=== PATIENT | female | born 1950 | race Caucasian/White ===

== ENCOUNTER → 2017-05-07 | Outpatient (CLI) | payer BC ==
[~2017-05-07] MED LIST: ASPIRIN 32325 MG/TAB PO; ASPIRIN E.C. 8181 MG PO; BLOOD PRESSURE; DUO-KAPS1 CAP PO; FLOMAX 0.40.4 MG/CAP PO; HYZAAR 25 MG-101 TAB PO; NORVASC 5MG5 MG/TAB PO; PRILOSEC 20MG20 MG PO; RESTASIS 60VL OP; ROXICODONE 55 MG/TAB PO; TENORMIN100 MG PO; THE MEDICINE S300 M1 PO; TOPROL XL100 MG PO; VITAMIN C500 MG PO
== END ==
LOC: MC.RAD 09:30
DX: Z85.3 Personal history of malignant neoplasm of breast (principal); Z90.11 Acquired absence of right breast and nipple

== ENCOUNTER 2018-03-10 23:50 | Inpatient (IN) | payer MEDICARE, BC ==
[~2018-03-10] VITALS: Ht 162.6 cm; Wt 138.6 kg
[~2018-03-10 23:50] MED LIST changes: +NATURAL FISH1000 MG PO; -THE MEDICINE S300 M1 PO
[2018-03-11] VITALS (130 sets, daily range): BP systolic 138–159; BP diastolic 66–81; PULSE 66–82; TEMP 97.1–98.5; O2SAT 91–100
[2018-03-11 00:14] LABS: BASO % 0.5 % (0.0-2.0); EOS # 0.1 (0.0-0.7); EOS % 1.7 % (0-4.0); HEMATOCRIT 34.5 % (37.0-47.0); HEMOGLOBIN 11.3 g/dl (12.5-16.0); LYMPH # 1.1 (1.2-3.4); LYMPH % 16.5 % (20.0-51.0); MEAN CELL VOLUME 78 fl (80.0-100.0); MEAN CORPUSCULAR HEMOGLOBIN 26 pg (27.0-31.0); MEAN CORPUSCULAR HGB CONC 33 g/dl (33.0-37.0); MONO # 0.3 (0.1-0.6); PLATELET COUNT 157 K/mm3 (130-400); RED BLOOD COUNT 4.43 M/mm3 (4.10-5.30)
[2018-03-11 00:16] LABS: PROTHROMBIN TIME 10.9 SECONDS (9.7-12.8)
[2018-03-11 00:19] LABS: PARTIAL THROMBOPLASTIN TIME 32.6 SECONDS (26.0-37.0)
[2018-03-11 00:29] LABS: ALANINE AMINOTRANSFERASE 40 U/L (9-52); ALBUMIN 3.8 gm/dL (3.5-5.0); ALKALINE PHOSPHATASE 105 U/L (50-136); ANION GAP 11 mmol/L (7-16); AST,SGOT 54 U/L (15-37); BILIRUBIN,TOTAL 0.5 mg/dL (0.0-1.0); BLOOD UREA NITROGEN 15 mg/dL (7-17); CALCIUM 8.7 mg/dL (8.4-10.2); CARBON DIOXIDE 31 mmol/L (22-30); CHLORIDE 98 mmol/L (98-107); GLUCOSE 185 mg/dL (74-106); POTASSIUM 3.3 mmol/L (3.4-5.0); SODIUM 140 mmol/L (137-145); TOTAL PROTEIN 7.2 gm/dL (6.4-8.2)
[2018-03-11] MEDS ORDERED: ARIMIDEX1 MG PO (00:36)
[2018-03-11] MEDS ORDERED: ASPIRIN 81M81 MG/TA2 PO (00:37)
[2018-03-11 00:40] LABS: TROPONIN-I < 0.012 ng/mL (0.000-0.034)
[2018-03-11 00:43] LABS: LIPASE 4207 U/L (23-300)
[2018-03-11 08:21] LABS: BASO % 0.2 % (0.0-2.0); EOS % 0.6 % (0-4.0); GRAN # 4.7 (1.4-6.5); GRAN % 86.7 % (42.2-75.2); HEMOGLOBIN 10.6 g/dl (12.5-16.0); LYMPH # 0.4 (1.2-3.4); MEAN CELL VOLUME 78 fl (80.0-100.0); MEAN CORPUSCULAR HEMOGLOBIN 25 pg (27.0-31.0); MEAN CORPUSCULAR HGB CONC 33 g/dl (33.0-37.0); MEAN PLATELET VOLUME 9.2 fl (7.4-10.4); MONO # 0.2 (0.1-0.6); MONO % 4.1 % (1.7-9.3); PLATELET COUNT 132 K/mm3 (130-400); REDCELL DISTRIBUTION WIDTH-CV 15.1 % (11.5-14.5)
[2018-03-11 08:22] LABS: HEMATOCRIT 32.6 % (37.0-47.0)
[2018-03-11 08:30] LABS: ANION GAP 8 mmol/L (7-16); BLOOD UREA NITROGEN 12 mg/dL (7-17); CALCIUM 8.3 mg/dL (8.4-10.2); CARBON DIOXIDE 30 mmol/L (22-30); CHLORIDE 100 mmol/L (98-107); CREATININE, serum 0.63 mg/dL (0.52-1.25); GLUCOSE 192 mg/dL (74-106); POTASSIUM 3.8 mmol/L (3.4-5.0); SODIUM 139 mmol/L (137-145)
[2018-03-11 08:43] LABS: TROPONIN-I 6 HR POST INITIAL < 0.012 ng/mL (0.000-0.034)
[2018-03-12 00:33] VITALS: BP 132/74; PULSE 78; TEMP 99
[2018-03-12 04:48] VITALS: BP 140/71; PULSE 70; TEMP 98.2
[2018-03-12 07:58] LABS: C-REACTIVE PROTEIN 4.7 mg/dL (0.0-0.9)
[2018-03-12 08:34] VITALS: BP 149/67; PULSE 75; TEMP 98.1
[2018-03-12 12:01] VITALS: BP 149/76; PULSE 75; TEMP 98.7
[2018-03-12 15:48] VITALS: BP 145/72; PULSE 76; TEMP 98.4
[2018-03-12 20:25] VITALS: BP 146/71; PULSE 80; TEMP 98.7
[2018-03-13 04:55] VITALS: BP 153/70; PULSE 77; TEMP 98.6
[2018-03-13 07:26] VITALS: BP 147/77; PULSE 74; TEMP 98.7
[2018-03-13 07:31] LABS: BASO % 0.4 % (0.0-2.0); EOS # 0.1 (0.0-0.7); EOS % 1.8 % (0-4.0); GRAN # 3.9 (1.4-6.5); GRAN % 75.4 % (42.2-75.2); LYMPH # 0.9 (1.2-3.4); LYMPH % 17.3 % (20.0-51.0); MEAN CELL VOLUME 79 fl (80.0-100.0); MEAN CORPUSCULAR HEMOGLOBIN 25 pg (27.0-31.0); MEAN CORPUSCULAR HGB CONC 32 g/dl (33.0-37.0); MEAN PLATELET VOLUME 9.3 fl (7.4-10.4); MONO # 0.2 (0.1-0.6); MONO % 4.7 % (1.7-9.3); PLATELET COUNT 126 K/mm3 (130-400); RED BLOOD COUNT 3.97 M/mm3 (4.10-5.30); REDCELL DISTRIBUTION WIDTH-CV 15.1 % (11.5-14.5)
[2018-03-13 07:35] LABS: ALBUMIN 3.1 gm/dL (3.5-5.0); BILIRUBIN,TOTAL 0.5 mg/dL (0.0-1.0); CREATININE, serum 0.6 mg/dL (0.52-1.25); TOTAL PROTEIN 6.1 gm/dL (6.4-8.2)
[2018-03-13 07:36] LABS: HEMATOCRIT 31.2 % (37.0-47.0)
[2018-03-13 12:13] VITALS: BP 147/56; PULSE 69; TEMP 98.4
[2018-03-13 16:33] VITALS: BP 150/68; PULSE 77; TEMP 98.4
[2018-03-13 19:59] VITALS: BP 151/77; PULSE 71; TEMP 98.3
[2018-03-14] VITALS (9 sets, daily range): BP systolic 135–167; BP diastolic 67–100; PULSE 61–89; TEMP 98.1–98.2
[2018-03-14 07:14] LABS: HEMATOCRIT 30.4 % (37.0-47.0); MEAN CELL VOLUME 77 fl (80.0-100.0); MEAN CORPUSCULAR HEMOGLOBIN 25 pg (27.0-31.0); MEAN CORPUSCULAR HGB CONC 33 g/dl (33.0-37.0); MEAN PLATELET VOLUME 8.8 fl (7.4-10.4); PLATELET COUNT 127 K/mm3 (130-400); RED BLOOD COUNT 3.93 M/mm3 (4.10-5.30); REDCELL DISTRIBUTION WIDTH-CV 15.3 % (11.5-14.5)
[2018-03-14 07:24] LABS: ALBUMIN 3.4 gm/dL (3.5-5.0); BILIRUBIN,TOTAL 0.5 mg/dL (0.0-1.0); CALCIUM 8.3 mg/dL (8.4-10.2); CREATININE, serum 0.55 mg/dL (0.52-1.25); POTASSIUM 3.7 mmol/L (3.4-5.0); TOTAL PROTEIN 6.5 gm/dL (6.4-8.2)
[2018-03-14] MEDS ORDERED: COLACE 100100 MG/CAP PO ×2 (16:40→16:43)
[2018-03-14] MEDS ORDERED: MOTRIN 600600 MG/TAB PO ×2 (16:40→16:43)
[2018-03-14] MEDS ORDERED: ROXICODONE 55 MG/TAB PO ×2 (16:41→16:43)
[2018-03-15] VITALS: BP 151/92; BP 171/80; PULSE 68; TEMP 97.8
[2018-03-15 04:00] VITALS: BP 150/82; PULSE 63; TEMP 97.8
[2018-03-15 06:37] LABS: HEMOGLOBIN 10.1 g/dl (12.5-16.0); MEAN CELL VOLUME 78 fl (80.0-100.0); MEAN CORPUSCULAR HEMOGLOBIN 26 pg (27.0-31.0); MEAN CORPUSCULAR HGB CONC 33 g/dl (33.0-37.0); MEAN PLATELET VOLUME 9.4 fl (7.4-10.4); PLATELET COUNT 144 K/mm3 (130-400); RED BLOOD COUNT 3.93 M/mm3 (4.10-5.30); REDCELL DISTRIBUTION WIDTH-CV 15.2 % (11.5-14.5)
[2018-03-15 06:47] LABS: HEMATOCRIT 30.7 % (37.0-47.0)
[2018-03-15 07:06] LABS: ALBUMIN 3.2 gm/dL (3.5-5.0); BILIRUBIN,TOTAL 0.5 mg/dL (0.0-1.0); CALCIUM 8.3 mg/dL (8.4-10.2); CREATININE, serum 0.64 mg/dL (0.52-1.25); POTASSIUM 3.5 mmol/L (3.4-5.0); TOTAL PROTEIN 6.4 gm/dL (6.4-8.2)
[2018-03-15 08:23] VITALS: BP 124/89; PULSE 74; TEMP 98.1
== END 2018-03-15 11:34 | disposition home or self-care (01) | DRG 417 ==
LOC: COL.ER 23:50 → ICU 03-11 01:50 → SURG 03-11 01:50 → ICU 03-11 09:20 → SURG 03-11 12:55
PROVIDERS: Emergency Medicine; Surgery
PROC: BF131ZZ Fluoroscopy of Gallbladder and Bile Ducts using Low Osmolar Contrast (ICD-10-PCS; 2018-03-14)
PROC: 0FT44ZZ Resection of Gallbladder, Percutaneous Endoscopic Approach (ICD-10-PCS; principal; 2018-03-14 14:30)
DX: K80.12 Calculus of gallbladder with acute and chronic cholecystitis without obstruction (principal); K85.10 Biliary acute pancreatitis without necrosis or infection; Z68.43 Body mass index [BMI] 50.0-59.9, adult; I10 Essential (primary) hypertension; E66.9 Obesity, unspecified
CPT/HCPCS: C9113; J1170; J2405; J2704; J3010; J3480; J7030; Q9967

== ENCOUNTER → 2018-04-12 | Outpatient (CLI) | payer MEDICARE, BC ==
[~2018-04-12] MED LIST changes: +ARIMIDEX1 MG PO; +ASPIRIN 81M81 MG/TA2 PO; +COLACE 100100 MG/CAP PO; +MOTRIN 600600 MG/TAB PO
== END ==
LOC: COL.RAD 08:00
DX: E27.9 Disorder of adrenal gland, unspecified (principal); K85.90 Acute pancreatitis without necrosis or infection, unspecified; N28.1 Cyst of kidney, acquired; R16.2 Hepatomegaly with splenomegaly, not elsewhere classified; Z90.49 Acquired absence of other specified parts of digestive tract; Z90.710 Acquired absence of both cervix and uterus
CPT/HCPCS: Q9967

== ENCOUNTER → 2018-05-20 | Outpatient (CLI) | payer MEDICARE, BC | LOC: MC.RAD 10:51 | DX: Z12.31 Encounter for screening mammogram for malignant neoplasm of breast (principal); N63.20 Unspecified lump in the left breast, unspecified quadrant; Z98.890 Other specified postprocedural states ==

== ENCOUNTER → 2018-05-27 | Outpatient (CLI) | payer MEDICARE, BC | LOC: MC.RAD 12:48 | DX: N63.20 Unspecified lump in the left breast, unspecified quadrant (principal) ==

== ENCOUNTER 2018-06-13 09:17 | Emergency (ER) | payer MEDICARE, BC ==
[~2018-06-13] VITALS: Ht 167.6 cm; Wt 124.1 kg
[2018-06-13 09:25] VITALS: TEMP 97.5
[2018-06-13] MEDS ORDERED: GLUCOTROL 5M5 MG/TAB PO (09:48)
[2018-06-13 09:56] LABS: COLLECTION METHOD CLEAN CATCH
[2018-06-13 10:09] LABS: MUCOUS Present /lpf; PH 5 (5-8); URINE APPEARANCE Hazy; URINE BACTERIA Rare /hpf; URINE BILIRUBIN Negative (NEGATIVE); URINE BLOOD Negative (NEGATIVE); URINE COLOR Yellow; URINE GLUCOSE Negative (NEGATIVE); URINE KETONE Negative (NEGATIVE); URINE LEUKOCYTE ESTERASE 1+ (NEGATIVE); URINE NITRATE Negative (NEGATIVE); URINE PROTEIN(semi-quant) Negative (NEGATIVE); URINE UROBILINOGEN Negative (NEGATIVE)
[2018-06-13 11:07] LABS: BASO % 0.4 % (0.0-2.0); EOS # 0.1 (0.0-0.7); EOS % 1.2 % (0-4.0); GRAN # 5.9 (1.4-6.5); GRAN % 76.8 % (42.2-75.2); HEMOGLOBIN 12.4 g/dl (12.5-16.0); LYMPH # 1.3 (1.2-3.4); MEAN CELL VOLUME 78 fl (80.0-100.0); MEAN CORPUSCULAR HEMOGLOBIN 26 pg (27.0-31.0); MEAN CORPUSCULAR HGB CONC 33 g/dl (33.0-37.0); MEAN PLATELET VOLUME 8.9 fl (7.4-10.4); MONO # 0.3 (0.1-0.6); MONO % 4.3 % (1.7-9.3); PLATELET COUNT 192 K/mm3 (130-400); RED BLOOD COUNT 4.86 M/mm3 (4.10-5.30); REDCELL DISTRIBUTION WIDTH-CV 15.5 % (11.5-14.5)
[2018-06-13 11:18] LABS: ALBUMIN 4.3 gm/dL (3.5-5.0); BILIRUBIN,TOTAL 0.5 mg/dL (0.0-1.0); CALCIUM 9.3 mg/dL (8.4-10.2); CREATININE, serum 0.71 mg/dL (0.52-1.25); POTASSIUM 3.8 mmol/L (3.4-5.0)
[2018-06-13] MEDS ORDERED: FLEXERIL 1010 MG/TAB PO (11:45)
[2018-06-13] MEDS ORDERED: ROXICODONE 55 MG/TAB PO (11:45)
[2018-06-13] MEDS ORDERED: MACROBID 1100 MG/CAP PO (11:45)
[2018-06-13 11:57] VITALS: BP 144/76; PULSE 82
== END 2018-06-13 11:58 | disposition home or self-care (01) ==
LOC: COL.ER 09:17
PROVIDERS: Emergency Medicine
DX: M54.17 Radiculopathy, lumbosacral region (principal); N39.0 Urinary tract infection, site not specified; E11.9 Type 2 diabetes mellitus without complications; I10 Essential (primary) hypertension; Z87.442 Personal history of urinary calculi; Z90.710 Acquired absence of both cervix and uterus; Z90.49 Acquired absence of other specified parts of digestive tract; Z98.890 Other specified postprocedural states; Z85.3 Personal history of malignant neoplasm of breast; Z88.0 Allergy status to penicillin; Z88.6 Allergy status to analgesic agent; Z79.82 Long term (current) use of aspirin; Z79.84 Long term (current) use of oral hypoglycemic drugs
CPT/HCPCS: J1885; J7030

== ENCOUNTER → 2018-06-28 | Outpatient (CLI) | payer MEDICARE, BC ==
[~2018-06-28] MED LIST changes: +FLEXERIL 1010 MG/TAB PO; +GLUCOTROL 5M5 MG/TAB PO; +MACROBID 1100 MG/CAP PO
== END ==
LOC: MC.RAD 08:00
DX: N63.21 Unspecified lump in the left breast, upper outer quadrant (principal); Z98.82 Breast implant status

== ENCOUNTER 2018-06-29 12:24 | Emergency (ER) | payer MEDICARE, BC ==
[~2018-06-29] VITALS: Ht 152.4 cm; Wt 134.1 kg
[2018-06-29 13:00] VITALS: TEMP 98.3
[2018-06-29 13:50] LABS: BASO % 0.2 % (0.0-2.0); EOS # 0.1 (0.0-0.7); GRAN # 4.6 (1.4-6.5); GRAN % 77.4 % (42.2-75.2); HEMATOCRIT 37.5 % (37.0-47.0); HEMOGLOBIN 12.3 g/dl (12.5-16.0); MEAN CELL VOLUME 79 fl (80.0-100.0); MEAN CORPUSCULAR HEMOGLOBIN 26 pg (27.0-31.0); MEAN CORPUSCULAR HGB CONC 33 g/dl (33.0-37.0); MONO # 0.3 (0.1-0.6); MONO % 4.2 % (1.7-9.3); PLATELET COUNT 168 K/mm3 (130-400); RED BLOOD COUNT 4.77 M/mm3 (4.10-5.30); REDCELL DISTRIBUTION WIDTH-CV 15.4 % (11.5-14.5)
[2018-06-29 14:04] LABS: ALBUMIN 4.2 gm/dL (3.5-5.0); BILIRUBIN,TOTAL 0.6 mg/dL (0.0-1.0); CALCIUM 9.4 mg/dL (8.4-10.2); CREATININE, serum 0.72 mg/dL (0.52-1.25); POTASSIUM 3.7 mmol/L (3.4-5.0); TOTAL PROTEIN 7.9 gm/dL (6.4-8.2)
[2018-06-29 14:12] LABS: ERYTHROCYTE SEDIMENTATION RATE 27 mm/hr (0-30)
[2018-06-29 19:02] VITALS: BP 128/81; PULSE 98
== END 2018-06-29 19:50 | disposition short-term general hospital (02) ==
LOC: COL.ER 12:24
PROVIDERS: Family Medicine
DX: G93.6 Cerebral edema (principal); G93.9 Disorder of brain, unspecified; E11.9 Type 2 diabetes mellitus without complications; Z79.82 Long term (current) use of aspirin; Z79.84 Long term (current) use of oral hypoglycemic drugs
CPT/HCPCS: A9585; J1100; J1953; J2060; J7030

== ENCOUNTER 2018-08-20 10:25 | Emergency (ER) | payer MEDICARE, BC ==
[~2018-08-20] VITALS: Ht 167.6 cm; Wt 123.2 kg
[2018-08-20 10:31] VITALS: TEMP 99.2
[2018-08-20 11:48] LABS: BASO % 0.2 % (0.0-2.0); EOS # 0.1 (0.0-0.7); EOS % 1.1 % (0-4.0); GRAN # 6.8 (1.4-6.5); GRAN % 81.7 % (42.2-75.2); HEMOGLOBIN 11.5 g/dl (12.5-16.0); LYMPH % 11.5 % (20.0-51.0); MEAN CELL VOLUME 79 fl (80.0-100.0); MEAN CORPUSCULAR HEMOGLOBIN 26 pg (27.0-31.0); MEAN CORPUSCULAR HGB CONC 33 g/dl (33.0-37.0); MEAN PLATELET VOLUME 9.1 fl (7.4-10.4); MONO # 0.4 (0.1-0.6); MONO % 4.2 % (1.7-9.3); PLATELET COUNT 196 K/mm3 (130-400); RED BLOOD COUNT 4.38 M/mm3 (4.10-5.30); REDCELL DISTRIBUTION WIDTH-CV 15.4 % (11.5-14.5)
[2018-08-20 11:55] LABS: HEMATOCRIT 34.6 % (37.0-47.0)
[2018-08-20 12:21] LABS: ALBUMIN 3.8 gm/dL (3.5-5.0); BILIRUBIN,TOTAL 0.8 mg/dL (0.0-1.0); CALCIUM 8.8 mg/dL (8.4-10.2); CREATININE, serum 0.89 mg/dL (0.52-1.25); TOTAL PROTEIN 6.9 gm/dL (6.4-8.2)
[2018-08-20] MEDS ORDERED: ZITHROMAX Z PA250 MG PO (13:07)
[2018-08-20] MEDS ORDERED: PREDNISONE20 MG PO (13:33)
[2018-08-20] MEDS ORDERED: PROAIR HFA0.09 MG/AC IH (13:43)
[2018-08-20 13:52] VITALS: BP 149/77; PULSE 73
== END 2018-08-20 13:53 | disposition home or self-care (01) ==
LOC: COL.ER 10:25
PROVIDERS: Emergency Medicine
DX: J20.9 Acute bronchitis, unspecified (principal); I10 Essential (primary) hypertension; E78.5 Hyperlipidemia, unspecified; E66.9 Obesity, unspecified; Z68.41 Body mass index [BMI] 40.0-44.9, adult
CPT/HCPCS: J7030; J7512

== ENCOUNTER → 2018-10-13 | Outpatient (CLI) | payer MEDICARE, BC ==
[~2018-10-13] MED LIST changes: +PREDNISONE20 MG PO; +PROAIR HFA0.09 MG/AC IH; +ZITHROMAX Z PA250 MG PO
== END ==
LOC: COL.RAD 10:59
DX: C71.2 Malignant neoplasm of temporal lobe (principal); D05.11 Intraductal carcinoma in situ of right breast; I10 Essential (primary) hypertension

== ENCOUNTER 2019-01-23 10:00 | Emergency (ER) | payer MEDICARE, BC ==
[~2019-01-23] VITALS: Ht 167.6 cm; Wt 104.5 kg
[2019-01-23 12:37] LABS: BASO % 0.2 % (0.0-2.0); EOS % 0.4 % (0-4.0); GRAN # 4.6 (1.4-6.5); GRAN % 88.8 % (42.2-75.2); HEMOGLOBIN 11.3 g/dl (12.5-16.0); LYMPH # 0.3 (1.2-3.4); LYMPH % 5.4 % (20.0-51.0); MEAN CELL VOLUME 84 fl (80.0-100.0); MEAN CORPUSCULAR HEMOGLOBIN 29 pg (27.0-31.0); MEAN CORPUSCULAR HGB CONC 35 g/dl (33.0-37.0); MEAN PLATELET VOLUME 8.9 fl (7.4-10.4); MONO # 0.3 (0.1-0.6); MONO % 4.8 % (1.7-9.3); PLATELET COUNT 76 K/mm3 (130-400); RED BLOOD COUNT 3.87 M/mm3 (4.10-5.30); REDCELL DISTRIBUTION WIDTH-CV 14.2 % (11.5-14.5)
[2019-01-23 12:38] LABS: ALANINE AMINOTRANSFERASE 72 U/L (9-52); ALBUMIN 4.1 gm/dL (3.5-5.0); ALKALINE PHOSPHATASE 87 U/L (50-136); ANION GAP 9 mmol/L (7-16); AST,SGOT 93 U/L (15-37); BILIRUBIN,TOTAL 1.3 mg/dL (0.0-1.0); BLOOD UREA NITROGEN 17 mg/dL (7-17); C-REACTIVE PROTEIN 1.5 mg/dL (0.0-0.9); CALCIUM 9.6 mg/dL (8.4-10.2); CARBON DIOXIDE 27 mmol/L (22-30); CHLORIDE 103 mmol/L (98-107); GLUCOSE 116 mg/dL (74-106); LIPASE 35 U/L (23-300); POTASSIUM 3.7 mmol/L (3.4-5.0); SODIUM 140 mmol/L (137-145); TOTAL PROTEIN 7.6 gm/dL (6.4-8.2)
[2019-01-23 12:39] LABS: HEMATOCRIT 32.5 % (37.0-47.0)
[2019-01-23 12:48] LABS: TROPONIN-I < 0.012 ng/mL (0.000-0.035)
[2019-01-23] MEDS ORDERED: CYCLOGYL OD (13:09)
[2019-01-23] MEDS ORDERED: VIGAMOX 0.5% 3 M3 ML OD (13:11)
[2019-01-23] MEDS ORDERED: ZOFRAN8 MG PO (13:12)
[2019-01-23] MEDS ORDERED: TEMODAR5 MG PO (13:13)
[2019-01-23] MEDS ORDERED: PREDFORTE5ML OD (13:13)
[2019-01-23] MEDS ORDERED: TEMODAR180 MG PO (13:14)
[2019-01-23 14:21] LABS: COLLECTION METHOD CLEAN CATCH
[2019-01-23 14:27] LABS: MUCOUS Present /lpf; PH 7 (5-8); SQUAMOUS EPITHELIAL 0-2 /hpf; URINE APPEARANCE Clear; URINE BACTERIA Rare /hpf; URINE BILIRUBIN Negative (NEGATIVE); URINE BLOOD Negative (NEGATIVE); URINE COLOR Straw; URINE GLUCOSE Negative (NEGATIVE); URINE KETONE Negative (NEGATIVE); URINE LEUKOCYTE ESTERASE Negative (NEGATIVE); URINE NITRATE Negative (NEGATIVE); URINE PROTEIN(semi-quant) Negative (NEGATIVE); URINE RBC 0-2 /hpf; URINE UROBILINOGEN Negative (NEGATIVE)
[2019-01-23] MEDS ORDERED: CIPRO 500MG TA500 MG PO (15:13)
[2019-01-23] MEDS ORDERED: FLAGYL500 MG PO (15:13)
[2019-01-23 15:40] VITALS: BP 147/85; PULSE 94
== END 2019-01-23 15:40 | disposition home or self-care (01) ==
LOC: COL.ER 10:00
PROVIDERS: Physician Assistant
DX: K57.90 Diverticulosis of intestine, part unspecified, without perforation or abscess without bleeding (principal); E78.00 Pure hypercholesterolemia, unspecified; K21.9 Gastro-esophageal reflux disease without esophagitis; Z90.49 Acquired absence of other specified parts of digestive tract; Z90.710 Acquired absence of both cervix and uterus; Z88.0 Allergy status to penicillin; Z79.84 Long term (current) use of oral hypoglycemic drugs
CPT/HCPCS: J2405; J7030; Q9967

== ENCOUNTER → 2019-06-16 | Outpatient (CLI) | payer MEDICARE, BC ==
[~2019-06-16] MED LIST changes: +CIPRO 500MG TA500 MG PO; +CYCLOGYL OD; +FLAGYL500 MG PO; +PREDFORTE5ML OD; +TEMODAR180 MG PO; +TEMODAR5 MG PO; +VIGAMOX 0.5% 3 M3 ML OD; +ZOFRAN8 MG PO
== END ==
LOC: MC.RAD 11:00
DX: Z12.31 Encounter for screening mammogram for malignant neoplasm of breast (principal); R92.0 Mammographic microcalcification found on diagnostic imaging of breast; Z98.890 Other specified postprocedural states

== ENCOUNTER → 2019-06-21 | Outpatient (CLI) | payer MEDICARE, BC | LOC: MC.RAD 13:20 | DX: R92.1 Mammographic calcification found on diagnostic imaging of breast (principal); Z98.890 Other specified postprocedural states | CPT/HCPCS: G0279 ==

== ENCOUNTER 2019-07-14 05:46 | Emergency (ER) | payer MEDICARE, BC ==
[~2019-07-14] VITALS: Ht 172.7 cm; Wt 104.5 kg
[2019-07-14 05:48] VITALS: TEMP 97.8
[2019-07-14 06:09] LABS: HEMOGLOBIN 11.8 g/dl (12.5-16.0); MEAN CELL VOLUME 86 fl (80.0-100.0); MEAN CORPUSCULAR HEMOGLOBIN 29 pg (27.0-31.0); MEAN CORPUSCULAR HGB CONC 34 g/dl (33.0-37.0); MEAN PLATELET VOLUME 9.1 fl (7.4-10.4); PLATELET COUNT 52 K/mm3 (130-400); RED BLOOD COUNT 4.06 M/mm3 (4.10-5.30); REDCELL DISTRIBUTION WIDTH-CV 14.6 % (11.5-14.5)
[2019-07-14 06:12] LABS: HEMATOCRIT 34.7 % (37.0-47.0)
[2019-07-14 06:27] LABS: BAND 10 % (0-10); LYMPHOCYTE 8 % (20.0-51.0); NEUTROPHILS 79 % (42.0-75.2)
[2019-07-14 06:28] LABS: PLATELET ESTIMATE DECREASED (NORMAL)
[2019-07-14 06:42] LABS: ALBUMIN 3.9 gm/dL (3.5-5.0); BILIRUBIN,TOTAL 1.3 mg/dL (0.0-1.0); CALCIUM 9.1 mg/dL (8.4-10.2); CREATININE, serum 0.79 (0.52-1.25); POTASSIUM 3.8 mmol/L (3.4-5.0); TOTAL PROTEIN 6.9 gm/dL (6.4-8.2)
[2019-07-14 07:23] LABS: TROPONIN-I 0.016 ng/mL (0.000-0.035)
[2019-07-14] MEDS ORDERED: CLARITIN 1010 MG/TAB PO (07:29)
[2019-07-14] MEDS ORDERED: CARAFATE 1GM1 G PO (07:30)
[2019-07-14] MEDS ORDERED: MULTI VITAMINS1 TAB PO (07:30)
[2019-07-14] MEDS ORDERED: OMEGA-31 SGL PO (07:31)
[2019-07-14 07:38] LABS: PROTHROMBIN TIME 11.6 SECONDS (9.7-12.8)
[2019-07-14 09:02] VITALS: BP 186/98; PULSE 62
== END 2019-07-14 09:20 | disposition short-term general hospital (02) ==
LOC: COL.ER 05:46
PROVIDERS: Emergency Medicine
DX: C71.9 Malignant neoplasm of brain, unspecified (principal); G93.6 Cerebral edema; E78.5 Hyperlipidemia, unspecified; I10 Essential (primary) hypertension; E11.9 Type 2 diabetes mellitus without complications; K21.9 Gastro-esophageal reflux disease without esophagitis; M79.7 Fibromyalgia; Z90.710 Acquired absence of both cervix and uterus
CPT/HCPCS: J1100; J1953; J2405